=== PATIENT | female | born 1960 | race Caucasian/White ===

== ENCOUNTER 2019-02-28 08:19 | Emergency (ER) | payer OTHER ==
[2019-02-28 08:34] VITALS: TEMP 97.6
--- NOTE | 2019-02-28 09:01 | ED.PDOC ---
History of Present Illness - General Chief Complaint: Problem Stated Complaint: poss uti Time Seen by Provider: 02/28/19 08:57 Source: patient Exam Limitations: no limitations - History of Present Illness Initial Comments: Patient presents with low back pain and mild dysuria for three days. The pain is just lateral to the lumbar vertebrae bilaterally, constant, aching, worse with movement, better with rest. Patient has had previous episodes with UTI. She also has had N/V for two days. She can eat and drink but her intake has been much lower since the back pain started. She says her urine may be " a little darker". No fevers. No other complaints. Timing/Duration: other - 3 days Severity: mild Improving Factors: rest Worsening Factors: movement Associated Symptoms: nausea/vomiting Allergies/Adverse Reactions: Allergies Hydrocodone Adverse Reaction (Mild, Verified 03/18/14 12:13) Other itching Home Medications: Ambulatory Orders Estradiol 1 mg PO DAILY 03/18/14 Imipramine HCl 50 mg PO DAILY 02/28/19 Lisinopril 2.5 mg PO DAILY 02/28/19 NIFEdipine XL [Procardia Xl] 30 mg PO DAILY 02/28/19 Ondansetron HCl [Zofran] 4 mg PO Q4HR PRN #12 tab 02/28/19 Review of Systems - Review of Systems Constitutional: States: no symptoms reported EENTM: States: no symptoms reported Respiratory: States: no symptoms reported Cardiology: States: no symptoms reported Gastrointestinal/Abdominal: States: see HPI Genitourinary: States: see HPI Musculoskeletal: States: see HPI Skin: States: no symptoms reported Neurological: States: no symptoms reported Endocrine: States: no symptoms reported Hematologic/Lymphatic: States: no symptoms reported Past Medical History (General) - Patient Medical History Hx Seizures: No Hx Stroke: No Hx Dementia: No Hx Asthma: No Hx of COPD: No Hx Cardiac Disorders: No Hx Congestive Heart Failure: No Hx Pacemaker: No Hx Hypertension: No Hx Thyroid Disease: No Hx Diabetes: No Hx Gastroesophageal Reflux: Yes - nutcraker esophagus Hx Renal Disease: No Hx Cancer: No Hx of HIV: No Hx MRSA: No Surgical History: appendectomy, Hysterectomy - Vaccination History Hx Tetanus, Diphtheria Vaccination: No Hx Influenza Vaccination: No Hx Pneumococcal Vaccination: No Immunizations Up to Date: No - Social History Hx Tobacco Use: No Hx Alcohol Use: No Hx Substance Use: No Hx Substance Use Treatment: No Hx Depression: No - Female History Patient is a Female of Child Bearing Age (10 -59 yrs old): No Family Medical History - Family History Father Hx Family Diabetes: Yes Mother Living Status: Still Living Hx Family;Other: Mother has hx of dementia Grandparents Living Status: Hx Family;Other: Cardiac hx - NC's reported Physical Exam - Physical Exam General Appearance: Alert Eye Exam: bilateral normal Ears, Nose, Throat: normal ENT inspection Neck: non-tender, full range of motion, supple Respiratory: lungs clear, normal breath sounds Cardiovascular/Chest: normal peripheral pulses, regular rate, rhythm Gastrointestinal/Abdominal: normal bowel sounds, non tender, soft Back Exam: CVA tenderness (R), CVA tenderness (L) Extremity: normal range of motion, non-tender, normal inspection Neurologic: no motor/sensory deficits, alert, normal mood/affect, oriented x 3 Skin Exam: normal color Lymphatic: no adenopathy Progress - Progress Progress: 02/28/19 11:58 Laboratory Tests 02/28/19 02/28/19 02/28/19 08:40 09:40 09:40 WBC 6.0 RBC 5.11 Hgb 14.3 Hct 42.7 MCV 83.6 MCH 28.0 MCHC 33.6 RDW 12.9 Plt Count 291 MPV 7.5 Absolute Neuts (auto) 4.10 Absolute Lymphs (auto) 1.40 Absolute Monos (auto) 0.50 Absolute Eos (auto) 0.10 Absolute Basos (auto) 0.00 Neutrophils % 67.5 Lymphocytes % 23.1 Monocytes % 8.1 Eosinophils % 0.9 L Basophils % 0.4 Sodium 128 L Potassium 4.4 Chloride 96 L Carbon Dioxide 22 Anion Gap 14.4 BUN 14 Creatinine 0.72 BUN/Creatinine Ratio 19.4 Random Glucose 100 Serum Osmolality 257.6 L Calcium 9.5 Total Bilirubin 0.5 AST 15 ALT 16 Alkaline Phosphatase 42 Serum Total Protein 7.6 Albumin 4.2 Globulin 3.4 Albumin/Globulin Ratio 1.2 Lipase Urine Color Yellow Urine Appearance Cloudy Urine pH 6.5 Ur Specific [place] 1.020 Urine Protein Negative Urine Glucose (UA) Negative Urine Ketones 15 H Urine Blood Negative Urine Nitrite Negative Urine Bilirubin Negative Urine Urobilinogen 0.2 Ur Leukocyte Esterase Negative Urine RBC 0-1 Urine WBC 0-1 Ur Epithelial Cells 1-3 Urine Bacteria 0 02/28/19 09:40 WBC RBC Hgb Hct MCV MCH MCHC RDW Plt Count MPV Absolute Neuts (auto) Absolute Lymphs (auto) Absolute Monos (auto) Absolute Eos (auto) Absolute Basos (auto) Neutrophils % Lymphocytes % Monocytes % Eosinophils % Basophils % Sodium Potassium Chloride Carbon Dioxide Anion Gap BUN Creatinine BUN/Creatinine Ratio Random Glucose Serum Osmolality Calcium Total Bilirubin AST ALT Alkaline Phosphatase Serum Total Protein Albumin Globulin Albumin/Globulin Ratio Lipase 34 Urine Color Urine Appearance Urine pH Ur Specific [place] Urine Protein Urine Glucose (UA) Urine Ketones Urine Blood Urine Nitrite Urine Bilirubin Urine Urobilinogen Ur Leukocyte Esterase Urine RBC Urine WBC Ur Epithelial Cells Urine Bacteria CT ab/pelvis showed large amount of stool in the colon. No indication of SBO. Patient was given instructions for a clear liquid diet and Miralax. Care instructions given. E.R. warnings given. Questions were elicited and answered. Patient voiced understanding and agreement with the plan. RX for Zofran sent. Departure - Departure Clinical Impression: Constipation, Nausea & vomiting Disposition: Discharge to Home or Self Care Condition: Good Departure Forms: ED Discharge - Pt. Copy, Patient Portal Self Enrollment Instructions: Clear Liquid Diet, Soft Diet Diet: other - Clear liquid diet for 24 hours. Advance to a soft diet after 24 hours. Referrals: SANAT CARCAMO MD [Primary Care Provider] - 1-2 Weeks Prescriptions: Ondansetron HCl [Zofran] 4 mg PO Q4HR PRN #12 tab PRN Reason: Nausea Home Medications: Ambulatory Orders Estradiol 1 mg PO DAILY 03/18/14 Imipramine HCl 50 mg PO DAILY 02/28/19 Lisinopril 2.5 mg PO DAILY 02/28/19 NIFEdipine XL [Procardia Xl] 30 mg PO DAILY 02/28/19 Ondansetron HCl [Zofran] 4 mg PO Q4HR PRN #12 tab 02/28/19 Additional Instructions: Take Miralax daily as directed. Return to the E.R. or your regular doctor if no bowel movement in the next 48 hours. Take Zofran as directed. Return to the E.R. for worsening symptoms.
--- NOTE | 2019-02-28 11:44 | CT ---
CT ABDOMEN PELVIS WITHOUT IV CONTRAST HISTORY: 58 years Female N/V COMPARISON: CT chest dated June 09, 2016. TECHNIQUE: Helical tomographic images of the abdomen and pelvis were obtained without the use of intravenous contrast. Coronal and sagittal reformatted images were also provided. This exam was performed according to our departmental dose-optimization program, which includes automated exposure control, adjustment of the mA and/or kV according to patient size and/or use of iterative reconstruction technique. FINDINGS: Included thorax: No acute process detected. Liver: Unremarkable. Gallbladder and biliary ducts: Unremarkable. Pancreas: Unremarkable. Spleen: Unremarkable. Adrenal glands: Unremarkable. Kidneys and ureters: Unremarkable. Urinary bladder: Unremarkable. Reproductive organs: Uterus is absent or atrophic. No adnexal masses detected. Bowel: Large volume colonic stool, which may be seen with constipation, with dense intraluminal material throughout the distal colon. Question prior oral contrast administration. No small bowel dilatation observed. Stomach is prominently distended without definite evidence of obstruction. Lymph nodes: No lymphadenopathy detected. Peritoneum: No free intraperitoneal fluid or free air detected. Vessels: There are scattered atherosclerotic changes noted. Abdominal wall: No acute process detected. Bones: No acute process detected. IMPRESSION: Large volume chronic stool which may be seen with constipation. Question prior contrast ingestion given dense intraluminal material throughout the distal colon. No small bowel bowel dilatation to suggest obstruction. Moderate distention of the stomach, nonspecific. Electronically signed by: Bienvenido Reese MD 02/28/2019 11:42 AM CDT
[2019-02-28 12:16] VITALS: BP 152/69; O2SAT 99
== END 2019-02-28 12:16 | disposition home or self-care (01) ==
LOC: ER 08:19
DX: K59.00 Constipation, unspecified (principal); R11.2 Nausea with vomiting, unspecified; R30.0 Dysuria; Z90.49 Acquired absence of other specified parts of digestive tract; Z79.899 Other long term (current) drug therapy; Z88.5 Allergy status to narcotic agent; Z87.440 Personal history of urinary (tract) infections

== ENCOUNTER → 2019-06-08 | Outpatient (CLI) | payer OTHER | LOC: GMAE 10:49 | PROVIDERS: ATTEND Family Medicine | DX: Z00.00 Encounter for general adult medical examination without abnormal findings (principal) ==